=== PATIENT | female | born 1930 | race Caucasian/White ===

== ENCOUNTER 2016-12-23 17:48 | Inpatient (IN) | payer MEDICARE, OTHER ==
[~2016-12-23] VITALS: Ht 160 cm; Wt 66.0 kg
[2016-12-23 19:12] LABS: HEMOGLOBIN 14.4 gm/dl (12.3-15.3); RED BLOOD COUNT 4.97 M/UL (4.00-5.10); WHITE BLOOD COUNT 11.7 K/UL (4.5-11.0)
[2016-12-23 19:35] LABS: BUN/CREATININE RATIO 19 (0-10)
[2016-12-24] MEDS ORDERED: VITAMIN D 11000 UNIT PO (00:27)
[2016-12-24] MEDS ORDERED: LISINOPRIL40 MG PO (00:28)
[2016-12-24] MEDS ORDERED: OMEPRAZOLE40 MG PO (00:28)
[2016-12-24] MEDS ORDERED: FLONASE 0.05% N16 GM INH (00:29)
[2016-12-24] MEDS ORDERED: SYNTHROID50 MCG PO (00:29)
[2016-12-24] MEDS ORDERED: AMLODIPINE BESYL5 MG PO (00:30)
[2016-12-24] MEDS ORDERED: HYDROCODON-ACE1 EAC4 PO (00:30)
[2016-12-24] MEDS ORDERED: MIRALAX17 GM PO (00:31)
[2016-12-24] MEDS ORDERED: METOPROLOL SUCC25 MG PO (00:31)
[2016-12-24 07:14] LABS: HEMOGLOBIN 13.6 gm/dl (12.3-15.3); RED BLOOD COUNT 4.7 M/UL (4.00-5.10); WHITE BLOOD COUNT 8.8 K/UL (4.5-11.0)
[2016-12-24 07:49] LABS: BUN/CREATININE RATIO 22 (0-10)
[2016-12-25] MEDS ORDERED: ELIQUIS5 MG PO ×2 (17:33→17:43)
== END 2016-12-25 20:10 | disposition home or self-care (01) | DRG 176 ==
LOC: ER1 17:48 → ZEROF 21:28 → M/S 21:28
PROVIDERS: Physician Assistant; ADMIT Internal Medicine
DX: I26.99 Other pulmonary embolism without acute cor pulmonale (principal); I10 Essential (primary) hypertension; G89.29 Other chronic pain; M54.9 Dorsalgia, unspecified; Z88.5 Allergy status to narcotic agent; E03.9 Hypothyroidism, unspecified; K21.9 Gastro-esophageal reflux disease without esophagitis; D72.1 Eosinophilia; E55.9 Vitamin D deficiency, unspecified
CPT/HCPCS: 36415; 70450; 71020; 80048; 80053; 81240; 81241; 82550; 82553; 83874; 83880; 84484; 85025; 85302; 85305; 85379; 85611; 85732; 93005; 96372; 99285; J1650; J7050; Q9963

== ENCOUNTER 2017-01-06 13:37 | Emergency (ER) | payer MEDICARE, OTHER ==
[~2017-01-06 13:37] MED LIST: AMLODIPINE BESYL5 MG PO; ELIQUIS5 MG PO; FLONASE 0.05% N16 GM INH; HYDROCODON-ACE1 EAC4 PO; LISINOPRIL40 MG PO; METOPROLOL SUCC25 MG PO; MIRALAX17 GM PO; OMEPRAZOLE40 MG PO; SYNTHROID50 MCG PO; VITAMIN D 11000 UNIT PO
[2017-01-06 14:23] LABS: HEMOGLOBIN 14.3 gm/dl (12.3-15.3); RED BLOOD COUNT 4.93 M/UL (4.00-5.10); WHITE BLOOD COUNT 7.9 K/UL (4.5-11.0)
[2017-01-06 14:51] LABS: BUN/CREATININE RATIO 17 (0-10)
== END 2017-01-06 17:20 | disposition home or self-care (01) ==
LOC: ER1 13:37
PROVIDERS: Family Medicine
DX: R07.89 Other chest pain (principal); I10 Essential (primary) hypertension; Z88.5 Allergy status to narcotic agent; Z88.8 Allergy status to other drugs, medicaments and biological substances
CPT/HCPCS: 36415; 71020; 80053; 82550; 82553; 83874; 84484; 85025; 85379; 85610; 93005; 99285

== ENCOUNTER 2020-09-06 12:43 | Emergency (ER) | payer MEDICARE, OTHER ==
[~2020-09-06 12:43] MED LIST changes: +ECOTRIN81 MG PO; +ELIQUIS 2.5 MG2.5 MG PO; -LISINOPRIL40 MG PO; +MICROZIDE12.5 MG PO; +PRINIVIL20 MG PO; +TOPROL XL100 MG PO
[2020-09-06] MEDS ORDERED: PERCOCET 5-3251 EACH PO (18:36)
[2020-10-22] MEDS ORDERED: FLUTICASONE SPRAY (14:21)
[2020-10-22] MEDS ORDERED: EUTHYROX50 MCG PO (14:21)
[2020-10-22] MEDS ORDERED: VITAMIN D 40400 UNIT PO (14:22)
[2020-10-22] MEDS ORDERED: MECLIZINE HCL25 MG PO (14:22)
[2020-10-22] MEDS ORDERED: TOPROL XL25 MG PO (14:23)
[2020-10-24] MEDS ORDERED: PERCOCET 5/325 T1 EA PO (16:04)
== END 2020-09-06 18:50 | disposition home or self-care (01) ==
LOC: ER1 12:43
DX: M54.42 Lumbago with sciatica, left side (principal); E03.9 Hypothyroidism, unspecified; I10 Essential (primary) hypertension; E78.5 Hyperlipidemia, unspecified; Z86.711 Personal history of pulmonary embolism; Z90.710 Acquired absence of both cervix and uterus; Z88.5 Allergy status to narcotic agent; Z79.899 Other long term (current) drug therapy
CPT/HCPCS: 72131; 72192; 73502; 99284

== ENCOUNTER → 2020-10-22 | Outpatient (CLI) | payer MEDICARE, OTHER ==
[~2020-10-22] MED LIST changes: +CYCLOBENZAPRINE10 MG PO; +EUTHYROX50 MCG PO; +FLUTICASONE SPRAY; +MECLIZINE HCL25 MG PO; +PERCOCET 5-3251 EACH PO; +PERCOCET 5/325 T1 EA PO; +TOPROL XL25 MG PO; +VITAMIN D 40400 UNIT PO
== END ==
LOC: OPSV2 13:00
PROVIDERS: Anesthesiology
DX: Z01.818 Encounter for other preprocedural examination (principal)
CPT/HCPCS: 36415; 80048; 93005

== ENCOUNTER → 2020-10-24 | Day surgery (SDC) | payer MEDICARE, OTHER | END | disposition home or self-care (01) | LOC: OR 08:29 | PROVIDERS: Surgery | PROC: 0WUF4JZ Supplement Abdominal Wall with Synthetic Substitute, Percutaneous Endoscopic Approach (ICD-10-PCS; principal; 2020-10-24 11:20) | DX: K42.0 Umbilical hernia with obstruction, without gangrene (principal); K21.9 Gastro-esophageal reflux disease without esophagitis; K44.9 Diaphragmatic hernia without obstruction or gangrene; I10 Essential (primary) hypertension; I49.9 Cardiac arrhythmia, unspecified; E78.5 Hyperlipidemia, unspecified; J44.9 Chronic obstructive pulmonary disease, unspecified; M19.90 Unspecified osteoarthritis, unspecified site; G62.9 Polyneuropathy, unspecified; M81.0 Age-related osteoporosis without current pathological fracture; E03.9 Hypothyroidism, unspecified; Z20.822 Contact with and (suspected) exposure to COVID-19; Z88.5 Allergy status to narcotic agent; Z91.018 Allergy to other foods; Z88.1 Allergy status to other antibiotic agents; Z88.8 Allergy status to other drugs, medicaments and biological substances; Z79.01 Long term (current) use of anticoagulants; Z79.899 Other long term (current) drug therapy; Z86.711 Personal history of pulmonary embolism; Z86.73 Personal history of transient ischemic attack (TIA), and cerebral infarction without residual deficits; Z79.2 Long term (current) use of antibiotics | CPT/HCPCS: C1713; C1781; J0690; J1100; J2405; J2704; J3010; J7030; J7120 ==

== ENCOUNTER 2020-11-02 09:27 | Emergency (ER) | payer MEDICARE, OTHER ==
[~2020-11-02 09:27] MED LIST changes: -CYCLOBENZAPRINE10 MG PO
[2020-11-02 10:34] LABS: HEMOGLOBIN 13.1 gm/dl (12.3-15.3); RED BLOOD COUNT 4.43 M/UL (4.00-5.10)
[2020-11-02] MEDS ORDERED: CYCLOBENZAPRINE10 MG PO (11:54)
== END 2020-11-02 12:04 | disposition home or self-care (01) ==
LOC: ER1 09:27
PROVIDERS: Family Medicine
DX: R10.33 Periumbilical pain (principal); J44.9 Chronic obstructive pulmonary disease, unspecified; I10 Essential (primary) hypertension; Z90.710 Acquired absence of both cervix and uterus; Z88.5 Allergy status to narcotic agent; Z88.8 Allergy status to other drugs, medicaments and biological substances; Z79.899 Other long term (current) drug therapy
CPT/HCPCS: 80053; 83690; 85025; 99284

== ENCOUNTER → 2020-11-21 | Outpatient (CLI) | payer MEDICARE, OTHER ==
[~2020-11-21] MED LIST changes: +CYCLOBENZAPRINE10 MG PO
== END ==
LOC: EXRD 08:40
DX: M79.671 Pain in right foot (principal); M79.672 Pain in left foot; M77.32 Calcaneal spur, left foot; M77.31 Calcaneal spur, right foot
CPT/HCPCS: 73620

== ENCOUNTER → 2021-01-24 | Outpatient (CLI) | payer MEDICARE, OTHER | LOC: RAD 16:25 → EDBD 16:25 | DX: M25.562 Pain in left knee (principal); M17.12 Unilateral primary osteoarthritis, left knee | CPT/HCPCS: 73560 ==

== ENCOUNTER 2021-02-03 15:37 | Emergency (ER) | payer MEDICARE, OTHER | END 2021-02-03 17:37 | disposition home or self-care (01) | LOC: ER1 15:37 → EDBD 15:37 → ER1 17:37 | DX: S80.12XA Contusion of left lower leg, initial encounter (principal); J44.9 Chronic obstructive pulmonary disease, unspecified; Z86.718 Personal history of other venous thrombosis and embolism; Z79.01 Long term (current) use of anticoagulants; W22.8XXA Striking against or struck by other objects, initial encounter | CPT/HCPCS: 93971; 99283 ==

== ENCOUNTER → 2021-04-17 | Outpatient (CLI) | payer MEDICARE, OTHER | LOC: EXRD 03-26 15:30 | DX: M25.562 Pain in left knee (principal) | CPT/HCPCS: 93971 ==

== ENCOUNTER → 2021-05-28 | Outpatient (CLI) | payer MEDICARE, OTHER | LOC: EXRD 11:19 | DX: M81.0 Age-related osteoporosis without current pathological fracture (principal); M85.852 Other specified disorders of bone density and structure, left thigh; M85.88 Other specified disorders of bone density and structure, other site | CPT/HCPCS: 77080 ==

== ENCOUNTER 2021-09-02 16:06 | Emergency (ER) | payer MEDICARE, OTHER ==
[2021-09-02 18:06] LABS: HEMOGLOBIN 12.9 gm/dl (12.3-15.3); RED BLOOD COUNT 4.36 M/UL (4.00-5.10); WHITE BLOOD COUNT 11.5 K/UL (4.5-11.0)
[2021-09-02 18:37] LABS: BUN/CREATININE RATIO 20 (0-10)
[2021-09-02] MEDS ORDERED: OMNICEF 300 MG300 MG PO (21:41)
== END 2021-09-02 21:54 | disposition home or self-care (01) ==
LOC: ER1 16:06
PROVIDERS: Physician Assistant Medical
DX: J18.9 Pneumonia, unspecified organism (principal); U09.9 Post COVID-19 condition, unspecified; I10 Essential (primary) hypertension; Z90.710 Acquired absence of both cervix and uterus
CPT/HCPCS: 71045; 80053; 82550; 82553; 83874; 83880; 84484; 85025; 85379; 87040; 93005; 99285; Q9967

== ENCOUNTER 2022-01-05 17:41 | Emergency (ER) | payer MEDICARE, OTHER ==
[~2022-01-05 17:41] MED LIST changes: +OMNICEF 300 MG300 MG PO
[2022-01-05] MEDS ORDERED: HYDROCODON-ACE1 EAC4 PO (21:03)
== END 2022-01-05 21:25 | disposition home or self-care (01) ==
LOC: ER1 17:41
DX: S22.089A Unspecified fracture of T11-T12 vertebra, initial encounter for closed fracture (principal); E11.9 Type 2 diabetes mellitus without complications; Z86.711 Personal history of pulmonary embolism; I51.9 Heart disease, unspecified; Z88.5 Allergy status to narcotic agent; W06.XXXA Fall from bed, initial encounter; Y92.009 Unspecified place in unspecified non-institutional (private) residence as the place of occurrence of the external cause
CPT/HCPCS: 70450; 72125; 72128; 72131; 99284